=== PATIENT | male | born 1975 | race Caucasian/White ===

== ENCOUNTER 2021-06-24 02:11 | Emergency (ER) | payer MEDICAID ==
[2021-06-24] MEDS ORDERED: Ibuprofen 200 MG Tab PO ONE (02:14)
== END 2021-06-24 02:30 | disposition home or self-care (01) ==
LOC: VM.ED 02:11
DX: M54.12 Radiculopathy, cervical region (principal); Z87.891 Personal history of nicotine dependence
CPT/HCPCS: 99283; A9270-GY